=== PATIENT | male | born 1945 | race American Indian/Alaskan Native ===

== ENCOUNTER 2016-02-18 18:05 | Emergency (ER) | payer MEDICARE ==
--- NOTE | 2016-02-18 19:55 | Emergency Department Report ---
Chief Complaint: Urogenital-Male Stated Complaint: UNABLE TO URINATE/SEVERE PAIN Time Seen by Provider: 02/18/16 19:50 - HPI History of Present Illness: Patient reports abdominal distention and unable to urinate since this morning - ROS Review of Systems: all other systems are unremarkable except for documentation in HPI - Exam Vital Signs: Vital Signs 02/18/16 18:19 Temperature 98.2 F Pulse Rate 98 H Respiratory 18 Rate Blood Pressure 207/106 O2 Sat by Pulse 97 Oximetry Physical Exam: Gen: well developed and nourished, uncomfortable Abd: distended, bowel sounds present, tenderness to palpation, no rebound, guarding or rigid MSE screening note: Focused history and physical exam performed. Due to findings the following was ordered: Shook catheter inserted and laboratory studies ordered ED Disposition for MSE Condition: Stable
[2016-02-18 20:35] LABS: Bilirubin,Urine NEG (Negative); Blood,Urine LG (Negative); Ketones,Urine NEG (Negative); Leukocyte Esterase,Urine NEG (Negative); Nitrite,Urine NEG (Negative); Urobilinogen,Urine < 2.0 mg/dL (<2.0); WBC,Urine < 1.0 /HPF (0.0-6.0)
[2016-02-19] MEDS ORDERED: TYLENOL PO ONE (01:20)
[2016-02-19] MEDS ORDERED: TYLENOL ONE ×2 (01:22→13:04)
--- NOTE | 2016-02-19 02:05 | Admit Criteria Form ---
Admission Criteria Documentation: URINARY COMPLICATIONS Clinical Indications for Inpatient Care (Place 'X' for any and all applicable criteria): Ongoing inpatient care may be indicated for urinary complications with ANY ONE of the following: [X ]I. Urinary tract infection requiring inpatient care as indicated by ANY ONE of the following(8)(19)(20): [ X]a) Severe symptoms (eg, high fever, severe pain) [ ]b) Vomiting or dehydration requiring ongoing inpatient care [ ]c) IV antibiotic needs that cannot be managed at lower level of care [ ]d) Hemodynamic instability [ ]e) Obstruction of collecting system by stone or tumor [ ]II. Urinary retention requiring drainage or surgery (3)(4)(5)(17)(18) [ ]III. Renal failure (Use Renal Failure Criteria for further information.) [ ]IV. Oliguria(30) [ ]V. Post obstructive diuresis requiring close monitoring of urine output and intravenous compensation for excessive fluid losses(33) Extended stay beyond goal length of stay for primary condition may be needed until ALL of the following are present(3)(4)(5)(8): [ ]a) Renal function (creatinine) at baseline, or daily decreases in creatinine consistent with renal function return [ ]b) Voiding adequately or with urinary catheter or percutaneous suprapubic tube and management regimen in place that is performable at lower level of care. [ ]c) Urine output adequate [ ]d) Fever absent or resolving [ ]e) Infection absent or treatable at next level of care The original [employer] content created by [employer] has been revised. The portions of the content which have been revised are identified through the use of italic text or in bold, and [email or web address] has neither reviewed nor approved the modified material. All other unmodified content is copyright [employer] Please see references footnoted in the original [employer] edition 2016 Admission Criteria Met: Yes
[2016-02-19] MEDS ORDERED: VALIUM IV ONE (09:45)
[2016-02-19] MEDS ORDERED: ZOFRAN IV ONE (09:45)
[2016-02-19] MEDS ORDERED: NACL 0.9% 1000 ML 1,000 ML IV ONE (09:45)
[2016-02-19 10:06] LABS: Hematocrit 49.6 % (35.5-45.6); Hemoglobin 16.6 gm/dl (11.8-15.2); Mean Corpuscular HGB Conc 34 % (32-34); Mean Corpuscular Hemoglobin 30 pg (28-32); Mean Corpuscular Volume 90 fl (84-94); Platelet Count 186 K/mm3 (140-440); Red Blood Count 5.53 M/mm3 (3.65-5.03); Red Cell Distribution Width 14.6 % (13.2-15.2); White Blood Count 9.3 K/mm3 (4.5-11.0)
[2016-02-19 10:21] LABS: Anion Gap 20 mmol/L; B-Hydroxybutyrate 5.4 mg/dL (0.2-2.8); Blood Urea Nitrogen 7 mg/dL (9-20); Calcium 9.1 mg/dL (8.4-10.2); Carbon Dioxide 25 mmol/L (22-30); Chloride 91.9 mmol/L (98-107); Glucose 206 mg/dL (75-100); Potassium 3.9 mmol/L (3.6-5.0); Sodium 133 mmol/L (137-145)
--- NOTE | 2016-02-19 12:12 | Emergency Department Report ---
HPI - General Chief Complaint: Urogenital-Male Time Seen by Provider: 02/19/16 08:01 - HPI HPI: The patient is a 70-year-old male with a history of diabetes, who presents for evaluation of urine retention and abdominal pain. The patient shares that he has a chronic long-standing history of recurrent lower abdominal pain and right testicular pain. He states that his abdominal pain and inability to urinate occurred yesterday morning, and has been present since, greater than 24 hours prior to my eval. His pain is 8 out of 10 in severity, throbbing in quality, and relieved with micturition. The patient denies fever, diarrhea, blood in the stool, dysuria, hematuria, flank pain, penile pain, penile discharge, testicular swelling. ED Past Medical Hx - Past Medical History Hx Hypertension: Yes Hx Diabetes: Yes (insulin dependant) Hx GERD: No (Denies) Hx Liver Disease: Yes (LIVER BIOPSY/HEPT B) Hx Sickle Cell Disease: No Hx Arthritis: Yes Additional medical history: Chronic right testicular pain, erectile dysfunction - Surgical History Hx Coronary Stent: Yes (x1 2000) Additional Surgical History: carpal tunnel surgery bilateral, heel and great toe surgeries, cardiac cath X 3, stents X 2 - Social History Smoking Status: Never Smoker Substance Use Type: Alcohol - Medications Home Medications: Home Medications Medication Instructions Recorded Confirmed Last Taken Type Aspirin [Aspirin TAB] 325 mg PO QDAY 01/10/13 03/15/13 03/26/13 History 325 MG Clopidogrel [Plavix] 75 mg PO QDAY 01/10/13 03/15/13 03/26/13 History 75 MG Exenatide [Byetta] 10 mcg SQ BID 01/10/13 03/15/13 03/30/13 09:30 History 5 UNITS Insulin Glargine,Hum.rec.anlog 64 unit SQ QHS 01/10/13 03/15/13 03/29/13 22:00 History [Lantus Solostar] 32 UNITS Isosorbide Mononitrate [Isosorbide 60 mg PO DAILY 01/10/13 03/15/13 03/30/13 09: 30 History Mononitrate ER] Lisinopril [Zestril] 20 mg PO QDAY 01/10/13 03/15/13 03/30/13 09:30 History 20 MG Metoprolol [Lopressor] 25 mg PO BID 01/10/13 03/15/13 03/30/13 09:30 History 25 MG Zolpidem [Ambien] 10 mg PO QHS 01/10/13 03/15/13 03/29/13 History 10 MG Albuterol Sulfate [Ventolin HFA] 2 puff IH Q4H PRN #1 hfa.aer.ad 04/02/14 Unknown Rx Azithromycin [Zithromax Z-VANNESA] 250 mg PO DAILY #6 tablet 04/02/14 Unknown Rx HYDROcodone/APAP 5-325 [[place] 1 each PO Q6HR PRN #12 tablet 04/02/14 Unknown Rx 5-325 mg TAB] Cyclobenzaprine HCl [Flexeril 5 MG 5 mg PO Q8HR PRN #15 tab 02/19/16 Unknown Rx TAB] ED Review of Systems ROS: Stated complaint: UNABLE TO URINATE/SEVERE PAIN Other details as noted in HPI Constitutional: denies: fever ENT: denies: throat or neck pain Respiratory: denies: cough, shortness of breath Cardiovascular: denies: chest pain Endocrine: denies unexplained weight loss or gain Gastrointestinal: reports: abdominal pain, nausea Genitourinary: reports decreased urination denies: dysuria Musculoskeletal: denies: leg swelling Skin: denies: rash Neurological: denies: headache Hematological/Lymphatic: denies: easy bleeding or easy bruising Psych: denies sadness or hopelessness Physical Exam - Physical Exam Vital Signs: Vital Signs 02/18/16 02/19/16 02/19/16 18:19 02:29 08:47 Temperature 98.2 F 98.2 F Pulse Rate 98 H 95 H 100 H Respiratory 18 18 18 Rate Blood Pressure 207/106 196/97 Blood Pressure 162/83 [Left] O2 Sat by Pulse 97 97 99 Oximetry Physical Exam: General: well-nourished, well-developed, no acute distress Head: Normocephalic, atraumatic Eyes: normal sclera ENT: Mucous membranes are pale and dry Neck: trachea midline, neck supple, No neck stiffness, no cervical adenopathy Respiratory: Breath sounds equal bilaterally, no wheezing, rales, or rhonchi Cardio: S1 and S2 present, no murmurs, rubs, gallops, capillary refill is delayed Abdomen: Normoactive bowel sounds, soft abdomen, suprapubic tenderness present, no rigidity, no guarding or rebound tenderness : There is no testicular tenderness, swelling, redness, or fluctuance whatsoever, no penile testicular vesicles or ulcerations, no inguinal adenopathy , no appreciable inguinal hernias Musc: No pitting edema Skin: No rash Neuro: no facial drooping, normal speech Psych: Normal affect ED Course Vital Signs 02/18/16 02/19/16 02/19/16 18:19 02:29 08:47 Temperature 98.2 F 98.2 F Pulse Rate 98 H 95 H 100 H Respiratory 18 18 18 Rate Blood Pressure 207/106 196/97 Blood Pressure 162/83 [Left] O2 Sat by Pulse 97 97 99 Oximetry ED Medical Decision Making - Lab Data Result diagrams: 02/19/16 09:53 02/19/16 09:53 - Medical Decision Making The patient was seen and examined by myself. The patient is placed on a pharmacy ancillary and continuous pulse ox. On initial evaluation, the patient was found to be in no distress. Evaluation orders were placed. The patient is given an IV dose of Valium for his pain. A Shook catheter is inserted, and the bladder is successfully drained. The patient's abdominal pain completely resolves. Lab results reveal a mildly elevated glucose of 200, elevated RBC, hemoglobin, and hematocrit, consistent with hemoconcentration and exam findings of dehydration, and otherwise labs were grossly unremarkable including normal BUN and creatinine levels. He is given 1 L normal saline fluid bolus for treatment of hyperglycemia and dehydration. The patient was reevaluated and reported that his pain remained resolved. The patient continued to drain urine into Shook bag , and as he is now free of pain with normal lab results, he is stable for discharge with outpatient follow-up. The patient is given follow-up and return instructions, including to follow-up with his urologist or the referred urologist within the next 24 hours. The patient expressed understanding and agreed with the plan. The patient is discharged in stable condition. Critical care attestation.: If time is entered above; I have spent that time in minutes in the direct care of this critically ill patient, excluding procedure time. ED Disposition Clinical Impression: Acute urinary retention, Abdominal pain, acute, periumbilical, Acute hyperglycemia, Dehydration Disposition: DISCHARGED TO HOME OR SELFCARE Is pt being admited?: No Does the pt Need Aspirin: No Condition: Stable Instructions: Shook Catheter Placement and Care (ED), Urinary Leg Bag (GEN), Urinary Retention in Men (ED) Additional Instructions: Make sure to follow up with your urologist or the referred urologist Dr. Ramirez within the next 1-2 days for further evaluation and removal of your Shook catheter. Referrals: PRIMARY CARE, [Primary Care Provider] - 3-5 Days VILMA RAMIREZ MD [Staff Physician] - 3-5 Days Time of Disposition: 12:14
[2016-02-19 13:23] VITALS: BP 152/83
== END 2016-02-19 13:13 | disposition home or self-care (01) ==
LOC: ED 18:05
DX: R33.9 Retention of urine, unspecified (principal); R10.33 Periumbilical pain; E11.65 Type 2 diabetes mellitus with hyperglycemia; E86.0 Dehydration; I10 Essential (primary) hypertension; E11.9 Type 2 diabetes mellitus without complications; M19.90 Unspecified osteoarthritis, unspecified site; Z79.82 Long term (current) use of aspirin; Z79.4 Long term (current) use of insulin
CPT/HCPCS: 36415; 51702; 80048; 81001; 82010; 82805; 85027; 87086; 96361; 96374; 96375; 99284; J2405; J3360; J7030